=== PATIENT | female | born 1960 | race Hispanic/Latino ===

== ENCOUNTER 2019-10-06 08:03 | Emergency (ER) | payer BC ==
[~2019-10-06] VITALS: Ht 152.4 cm; Wt 59.9 kg
--- OUTSIDE RECORDS SUMMARY | 2019-10-06 08:05 | XMS REPORT ---
Author Author Admin, [place] Organization [facility] Address [address] [place] [address] Phone Allergies, Adverse Reactions, Alerts Allergy Name Reaction Description Start Date Severity Status Provider Allergies Unknown Conditions or Problems Problem Name Problem Code Onset Date Status Entry Date Provider Comment Standard Description Annotate Problems Unknown Medication List Medication Instructions Start Date Stop Date Generic Name NDC Status Provider Patient Instruction Drug Treatment Unknown - unknown
--- OUTSIDE RECORDS SUMMARY | 2019-10-06 08:05 | XMS REPORT ---
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 Vadim Rios MD Special investigations and examinations - Gynecological examination Hx of normal menopause V49.81 Active Vadim Rios MD Asymptomatic postmenopausal status (age-related) (natural) Mammogram not high risk screening V76.12 Active Vadim Rios MD Other screening mammogram Mastodynia, bilateral 611.71 Active Vadim Rios MD Mastodynia Medication List Medication Instructions Start Date Stop Date Generic Name NDC Status Provider Patient Instruction LISINOPRIL 40 MG ORAL TABLET LISINOPRIL 85237529101 Active Vadim Rios MD Active AMLODIPINE BESYLATE 5 MG ORAL TABLET AMLODIPINE BESYLATE 51101986804 Active Vadim Rios MD Active Vital Signs Date Name Value Unit Range Description blood pressure, diastolic 74 mm[Hg] BP lora blood pressure, systolic 145 mm[Hg] BP sys height E&M 49.5 [in_us] Bdy height pulse rate E&M 64 /min Heart rate respiratory rate E&M 15 /min Resp rate temperature E&M 98.4 [degF] Body temperature weight E&M 127 [lb_av] Weight Measured Procedures Code Procedure Name Date Entry Date Standard Description [id number] New Patient Well Exam (40 - 64 Yrs) - [id number] 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
[2019-10-06] MEDS ORDERED: LISINOPRIL40 MG (08:11)
[2019-10-06] MEDS ORDERED: MELOXICAM15 MG (08:11)
[2019-10-06] MEDS ORDERED: SODIUM CHLORIDE 0.9% 1000ML 1,000 ML IV STA (08:12)
[2019-10-06 08:39] LABS: BILIRUBIN,URINE NEGATIVE (NEGATIVE); CLARITY,URINE SL CLOUDY (CLEAR); COLOR,URINE YELLOW (YELLOW); LEUKOCYTE ESTERASE ,URINE NEGATIVE (NEGATIVE); NITRITE,URINE NEGATIVE (NEGATIVE); URINE UROBILINOGEN 0.2 mg/dL (0.2 - 1)
[2019-10-06 08:40] LABS: KETONES,URINE 2+ (NEGATIVE); PROTEIN,URINE DIPSTICK 3+ (NEGATIVE)
[2019-10-06] MEDS ORDERED: MORPHINE SULFATE 2 MG/ML SYR 1ML IV ONE (09:00)
[2019-10-06] MEDS ORDERED: ONDANSETRON HCL INJ 2MG/ML 2ML 2 MG/ML VIAL IV ONE (09:00)
[2019-10-06] MEDS ORDERED: LEVOFLOXACIN 500MG/D5W 100ML 100 ML IV ONE (09:00)
[2019-10-06 09:02] LABS: WBC,URINE (MAN) >50 /HPF (0-5)
[2019-10-06 09:03] LABS: BACTERIA,URINE MANY /HPF; EPITHELIAL CELLS,URINE MANY /LPF; MUCUS,URINE FEW (RARE); RBC,URINE >50 /HPF (0-5)
[2019-10-06 09:20] LABS: BASOPHILS % 0.4 % (0.0-1.0); EOSINOPHILS % 0.2 % (0.0-6.0); HEMATOCRIT 40.6 % (34.2-44.1); HEMOGLOBIN 13.1 g/dL (12.0-16.0); LYMPHOCYTES # (AUTO) 1.9 (1.0-3.2); LYMPHOCYTES % 23.6 % (18.0-39.1); MEAN CORPUSCULAR HEMOGLOBIN 28.9 pg (28-32); MEAN CORPUSCULAR HGB CONC 32.3 g/dL (31-35); MEAN CORPUSCULAR VOLUME 89.4 fL (81-99); MONOCYTES # (AUTO) 0.9 (0.2-0.8); MONOCYTES % 10.4 % (4.4-11.3); NEUTROPHILS # (AUTO) 5.3 (2.1-6.9); NEUTROPHILS % 65.2 % (38.7-80.0); PLATELET COUNT 248 x10e3/uL (140-360); RED BLOOD COUNT 4.54 x10e6/uL (3.6-5.1); RED CELL DISTRIBUTION WIDTH 12.8 % (11.7-14.4)
[2019-10-06 09:38] LABS: ALANINE AMINOTRANSFERASE 14 IU/L (0-55); ALBUMIN 4.2 g/dL (3.5-5.0); ALBUMIN/GLOBULIN RATIO 1.2 (0.8-2.0); ALKALINE PHOSPHATASE 71 IU/L (40-150); ANION GAP 16.8 mmol/L (8-16); BLOOD UREA NITROGEN 11 mg/dL (7-26); BUN/CREATININE RATIO 14 (6-25); CALCIUM 9.8 mg/dL (8.4-10.2); CARBON DIOXIDE 26 mmol/L (22-29); CHLORIDE 102 mmol/L (98-107); CREATININE, SERUM 0.79 mg/dL (0.57-1.11); EST GLOMERULAR FILTRATION RATE > 60 ML/MIN (60-); GLUCOSE 127 mg/dL (74-118); POTASSIUM 3.8 mmol/L (3.5-5.1); SODIUM 141 mmol/L (136-145)
[2019-10-06 09:43] VITALS: BP 119/56
[2019-10-06] MEDS ORDERED: METRONIDAZOLE 500MG/NS 100ML 100 ML IV ONE (10:30)
[2019-10-06 10:43] LABS: LIPASE 18 U/L (8-78)
--- NOTE | 2019-10-06 11:36 | Diagnostic Imaging Report ---
CT of the abdomen and pelvis, with contrast, 10/06/2019. History: Left-sided abdominal pain. Pain with urination. Comparison: None available. Technique: Multidetector CT scanning of the abdomen and pelvis was performed from the level of the lung bases to the inferior pubic rami after intravenous administration of contrast. No oral contrast was given. Coronal and sagittal multiplanar reformations were obtained. RADIATION DOSE: Total DLP: 277 mGy*cm Dose modulation, iterative reconstruction, and/or weight based adjustment of the mA/kV was utilized to reduce the radiation dose to as low as reasonably achievable. Discussion: LUNG BASES: No visualized abnormalities. ABDOMEN: There is mild bilateral hydronephrosis, left greater than right, and no evidence of nephrolithiasis. Mild dilatation of bilateral ureters is also noted with diffuse ureteral wall thickening and enhancement. No stones are visible within the distal ureters. The gallbladder is absent. The liver, biliary tree, spleen, pancreas, and adrenal glands are normal. The hepatic vein, portal vein, and splenic vein are patent. The abdominal aorta is within normal limits for size. Evaluation of bowel is limited without oral contrast. There is no bowel dilatation. The appendix is visualized and is normal. There is no evidence of adenopathy or free fluid. PELVIS: There is mild diffuse thickening of the bladder wall. The uterus is normal size but there is ill-defined thickening of the cervix with adjacent retroperitoneal fat stranding. There is no evidence of free fluid or adenopathy. BONES AND SOFT TISSUES: Degenerative changes are present throughout the lumbar spine without evidence of lytic or sclerotic lesion. IMPRESSION: 1. Mild bilateral hydronephrosis and hydroureter, left greater than right, without visible obstructing stone. 2. Ill-defined cervical thickening with adjacent inflammatory changes, which may be the cause of ureteral thickening and dilatation. Consider further evaluation with pelvic ultrasound to evaluate for cervical pathology. 3. Mild diffuse bladder wall thickening which may represent cystitis. Signed by: Juan J Zacarias on 10/06/2019 11:33 AM
[2019-10-06] MEDS ORDERED: TAMSULOSIN HCL 0.4 MG CAP PO SCH (12:15)
[2019-10-06] MEDS ORDERED: CEFTRIAXONE SOD 1 GM/NS 50 ML 50 ML IV ONE (12:15)
[2019-10-06] MEDS ORDERED: SODIUM CHLORIDE 0.9% 50ML 50 ML ONE (14:34)
[2019-10-06] MEDS ORDERED: IOPAMIDOL 370 MG/ML 200 ML INFUS..BTL INJ ONE (14:34)
== END 2019-10-06 12:49 | disposition home or self-care (01) ==
LOC: ER 08:03
DX: R10.31 Right lower quadrant pain (principal); R30.0 Dysuria; N30.91 Cystitis, unspecified with hematuria
CPT/HCPCS: 36415; 74177; 80053; 81001; 83690; 85025; 87086; 99284; J0696; J1956; J2270; J2405; J7030; Q9967